=== PATIENT | female | born 1960 | race Caucasian/White ===

== ENCOUNTER 2024-02-15 12:01 | Emergency (ER) | payer OTHER, SELFPAY ==
[2024-02-15 12:12] VITALS: BP 161/85; BMI 24.4
--- NOTE | 2024-02-15 15:21 | ED.GENMED ---
History of Present Illness
General
Chief Complaint: Extremity Pain (non-traumatic)
Source: patient
Exam Limitations: none
Time Seen by Provider: 02/15/24 15:05
Nursing documentation reviewed up to this point in time: agreed with
History of Present Illness
History of Present Illness:
63 y/o F with no sig pmh
previous ORIF R knee
arthritis
here with left prox posterior calf pain x 3-4 day, no trauma, mild swelling, tender to touch
no recent long travel
no h/o dvt/pe
no fever/chills, paresthesias, weakness, cp, sob.
Past History
Past History
ED Past Medical History: None
ED Past Surgical History: Orthopedic
Social History
Tobacco: Non-smoker
Alcohol: None
Drug: None
Personal:
Review of Systems
Review of Systems
Allergies reviewed?: Yes
All Other Systems: Not applicable
Phy Exam
Physical Exam
Physical Exam:
GENERAL: Alert , in no apparent distress, comfortable at rest
HEAD: NCAT
CV: 2+ DP PULSES B/L
NEUROLOGICAL: Alert and oriented, no focal neuro deficits, , 5/5 strength, sensation intact,
SKIN: Warm and dry, no redness, warmth to calf
MUSCULOSKELETAL: L knee normal inspection, full rom painless, no effusion
posterior knee nontender
calf slightly swollen and slightly tender but neg homans sign
normal pulses and sensation distally, normal strength
ankle normal
PSYCH: Normal and appropriate interaction.
Course
Orders/Labs/Results
Orders:
Orders
02/15/24 12:09
Venous Doppler Lwr Ext Left [US Periph Venous LOWER Ext LT] Urgent
Comment: LLE
Reason For Exam: clot?
Vital Signs
Initial and Last Documented VS:
Initial Vital Signs
Temp Pulse Resp BP Pulse Ox
98.5 F 81 16 161/85 100
02/15/24 12:12 02/15/24 12:12 02/15/24 12:12 02/15/24 12:12 02/15/24 12:12
Last Documented Vital Signs
Temp Pulse Resp BP Pulse Ox
98.5 F 81 16 161/85 100
02/15/24 12:12 02/15/24 12:12 02/15/24 12:12 02/15/24 12:12 02/15/24 12:12
MDM/Problems Addressed
Differential Diagnosis Includes:
dvt, bakers cyst
MDM/Problems Addressed:
63 y/o F with no sig pmh
here with L calf pain for a few days, no injury
mild swelling
full knee rom and no pain with walking
no fever, redness, foot drop, numbness tingling, cp, sob
no dvt rf
exam reliatively unremarkable
us report neg for DV + bakers cyts 6 cm
pt has h/o in the opposite leg
compression john
warm compresses
ortho
*Critical Care Note
Total Time (30-74mins, 75-104mins- exclusive of procedures): Not Applicable
ED Attending Note
-
Portions of this chart may have been created with voice recognition software.� Occasional wrong word or��sound alike� substitutions may have occurred due to the inherent limitations of voice recognition software.
Discharge Plan
Departure
Patient Disposition: Home (Routine Discharge)
Date of Disposition: 02/15/24
Time of Disposition: 15:25
Patient with high blood pressure during this ER visit?: Yes
Condition: Fair
Covid-19: Not Applicable
Discharge Problem:
Bennett's cyst of knee
Instructions: Bennett's Cyst (DC)
Referrals:
Logan Barclay MD [Family Provider] - Follow up in 5-7 days
Activity Restrictions/Additional Instructions:
YOU HAVE A BENNETT'S CYST
COMPRESS DURING THE DAY, OFF AT NIGHT
WARM COMPRESSES
MOTRI OR TYLENOL FOR PAIN
RETURN FOR FEVER, REDNESS, SEVERE PAIN, INABILITY TO WALK, NUMBNESS/TINGLING/WEAKNESS OR ANY CONCERNS
OTHEWRISE FOLLOW UP WITH ORTHO
Interventions
Interventions:
*Risk Screen - Suicide Last Done: 02/15/24 12:12
*General Assessment Last Done: 02/15/24 12:31
*Neglect/Abuse Screening Last Done: 02/15/24 12:12
ED- Fall Risk Assessment Last Done: 02/15/24 12:31
*ED COVID-19 Vaccine History Last Done: 02/15/24 12:31
ED-Skin Assessment Last Done: 02/15/24 12:33
ED-Peripheral Vascular Assessment Last Done: 02/15/24 12:33
ED-Musculoskeletal Assessment Last Done: 02/15/24 12:33
Discharge Date and Time
Print Language: DANISH
== END 2024-02-15 15:33 | disposition home or self-care (01) ==
LOC: EMR 12:01
PROVIDERS: EMERGENCY PHYSICIAN Student in an Organized Health Care Education/Training Program; FAMILY PHYSICIAN Internal Medicine
DX: M71.22 Synovial cyst of popliteal space [Baker], left knee (principal); R03.0 Elevated blood-pressure reading, without diagnosis of hypertension
CPT/HCPCS: 99284; 93971

== ENCOUNTER 2025-04-26 21:11 | Emergency (ER) | payer OTHER, SELFPAY ==
[2025-04-26 21:15] VITALS: BP 135/79
--- NOTE | 2025-04-26 22:27 | ED.GENMED ---
History of Present Illness
General
Chief Complaint: Crisis Evaluation
Source: patient
Exam Limitations: none
Time Seen by Provider: 04/26/25 21:46
Nursing documentation reviewed up to this point in time: agreed with
History of Present Illness
History of Present Illness:
64-year-old female history of depression alcoholic drinks every day she is employed came in for evaluation of depression seen by crisis, denied any suicidal ideation, crisis is recommended warm handoff alcohol rehab, patient drinks about 3 drinks a
day had some this evening, she is employed, does admit to the stress of the upcoming
Past History
Past History
ED Past Medical History: None
ED Past Surgical History: Orthopedic
Social History
Tobacco: Non-smoker
Alcohol: Daily
Drug: None
Personal:
Living: with family
Employment: Employed
Review of Systems
Review of Systems
All Other Systems: Not applicable
Constitutional: Reports fever
Psychiatric: Reports depression and anxiety; Denies suicidal or hallucinations
Phy Exam
Physical Exam
Physical Exam:
Physical Exam
General: 64 female looks a bit older than stated age cooperative
Neck: No jaundice
Lungs: no acute respiratory distress. clear bilaterally
Abdomen: Nontender
Neuro: alert and oriented. no focal neurological deficits
Skin: no rash
Psychiatric: Cooperative admits to depression denies suicidal ideation
Extremities: no edema
Course
Orders/Labs/Results
Orders:
Orders
04/26/25 21:18
1:1 Observation - Suicide/ Violent Behavior As Directed
Crisis Consult Urgent
Reason for Consult: SI
04/26/25 22:23
Warm Handoff Consult ONCE
Patient agreeable to Warm Hand off: Yes
Vital Signs
Initial and Last Documented VS:
Initial Vital Signs
Temp Pulse Resp BP Pulse Ox
98.1 F 91 16 135/79 94
04/26/25 21:15 04/26/25 21:15 04/26/25 21:15 04/26/25 21:15 04/26/25 21:15
Last Documented Vital Signs
Temp Pulse Resp BP Pulse Ox
98.1 F 91 16 135/79 94
04/26/25 21:15 04/26/25 21:15 04/26/25 21:15 04/26/25 21:15 04/26/25 22:29
MDM/Problems Addressed
Differential Diagnosis Includes:
Alcoholism depression anxiety mental illness
MDM/Problems Addressed:
Alcoholism depression anxiety
Chronic conditions affecting care:
Alcoholism
Acute Exacerbation and/or Progression of Chronic Illness:
Alcoholism
*Pulse Oximetry
SaO2: 94
Oxygen Mode of Delivery: Room air
Patient hypoxic: no
*Critical Care Note
Total Time (30-74mins, 75-104mins- exclusive of procedures): Not Applicable
Update Note
Update Note:
Patient denies any suicidal thoughts, she has been seen by crisis the recommendations are evaluation by warm handoff, for potential inpatient rehab patient appears amenable to that
12:10 AM patient going to the [facility]
ED Attending Note
-
Portions of this chart may have been created with voice recognition software.� Occasional wrong word or��sound alike� substitutions may have occurred due to the inherent limitations of voice recognition software.
Discharge Plan
Departure
Patient Disposition: Acute Rehab Facility
Date of Disposition: 04/27/25
Time of Disposition: 00:09
Condition: Good
Discharge Problem:
Alcoholism
Instructions: Drug and Alcohol Abuse Information
Referrals:
Logan Barclay MD [Family Provider, Internal Medicine]
Activity Restrictions/Additional Instructions:
Patient is medically clear for rehabilitation
Interventions
Interventions:
*Risk Screen - Suicide Last Done: 04/26/25 21:17
*General Assessment Last Done: 04/26/25 21:15
*Neglect/Abuse Screening Last Done: 04/26/25 21:17
*ED- Fall Risk Assessment Last Done: 04/26/25 21:15
*ED COVID-19 Vaccine History Last Done: 04/26/25 21:15
ED-Psychological Assessment Last Done: 04/26/25 21:17
Discharge Date and Time
Print Language: BULGARIAN
[2025-04-27 00:36] VITALS: BP 132/77
== END 2025-04-27 01:09 ==
LOC: EMR 21:11
PROVIDERS: EMERGENCY PHYSICIAN Emergency Medicine; FAMILY PHYSICIAN Internal Medicine
DX: F10.20 Alcohol dependence, uncomplicated (principal); F41.8 Other specified anxiety disorders
CPT/HCPCS: 99282